=== PATIENT | male | born 1975 | race Caucasian/White ===

== ENCOUNTER 2016-11-19 15:32 | Emergency (ER) | payer OTHER ==
[~2016-11-19] VITALS: Ht 190.5 cm; Wt 127.7 kg
[~2016-11-19 15:32] MED LIST: BENTYL10 MG PO; CEFDINIR300 MG PO; FIORICET WI1 CAPSULE PO; LORAZEPAM0.5 MG PO; NAPROSYN500 MG PO; OMEPRAZOLE20 MG PO; RANITIDINE HCL150 MG PO; ZOLPIDEM TARTRA10 MG PO
[2016-11-19 15:54] LABS: HEMATOCRIT 50.1 % (38.0-50.0); MCH 32.1 PG (29.0-34.0); MCHC 34.1 G/DL (30.0-36.0); MEAN PLAT.VOLUME 9.7 uM^3 (9.0-12.4); PLATELET COUNT 235 K/uL (156-360); RBC DIS.WIDTH-CV 13.5 % (11.8-14.6); RBC DIS.WIDTH-SD 46.1 % (39-53); RED BLOOD COUNT 5.33 M/uL (4.00-5.50); WHITE BLOOD COUNT 7.9 K/uL (4.1-10.2)
[2016-11-19 16:05] LABS: CHLORIDE 104 mEq/L (99-109); POTASSIUM 4.6 mEq/L (3.7-5.4); SODIUM 143 mEq/L (136-147)
[2016-11-19 16:07] LABS: GLUCOSE 103 mg/dL (70-99)
[2016-11-19 16:08] LABS: ANION GAP 12 MEQ/L (2-14)
[2016-11-19 16:11] LABS: GFR ESTIMATE (CALCULATED) > 59 mL/min/
[2016-11-19 16:12] LABS: UREA NITROGEN (BUN) 9 mg/dL (9-23)
[2016-11-19 16:17] LABS: TROP-I INTERPRETATION NEGATIVE; TROPONIN-I < 0.01 ng/mL (0.0-0.30)
[2016-11-19 19:54] VITALS: BP 128/76
== END 2016-11-19 19:52 | disposition home or self-care (01) ==
LOC: EME 15:32
DX: R00.2 Palpitations (principal)
CPT/HCPCS: 71020; 80048; 84484; 85027; 93005; 99281; 99284

== ENCOUNTER 2017-10-06 04:43 | Emergency (ER) | payer OTHER ==
[~2017-10-06] VITALS: Ht 190.5 cm; Wt 138.9 kg
[2017-10-06 05:56] LABS: HEMATOCRIT 45.1 % (38.0-50.0); MCH 33.3 PG (29.0-34.0); MCHC 35.5 G/DL (30.0-36.0); PLATELET COUNT 175 K/uL (156-360); RBC DIS.WIDTH-CV 13.3 % (11.8-14.6); RBC DIS.WIDTH-SD 46.3 % (39-53); WHITE BLOOD COUNT 10.8 K/uL (4.1-10.2)
[2017-10-06 06:06] LABS: ALBUMIN 4.3 g/dL (3.2-4.8); CHLORIDE 102 mEq/L (99-109); POTASSIUM 4.4 mEq/L (3.7-5.4); SODIUM 138 mEq/L (136-147)
[2017-10-06 06:08] LABS: GLUCOSE 262 mg/dL (70-99); TOTAL PROTEIN 7.2 g/dL (6.4-8.3)
[2017-10-06 06:11] LABS: APPEARANCE CLEAR ((CLEAR)); BILIRUBIN NEGATIVE; BLOOD NEGATIVE; COLOR YELLOW ((YELLOW)); GLUCOSE (STRIP) 50; KETONES 20; LEUKOCYTES NEGATIVE; NITRITE NEGATIVE; PROTEIN (STRIP) 30; SPECIFIC GRAVITY 1.016 (1.000-1.030); UCUL ADDED? NO; UROBILINOGEN 0.2 MG/DL (0.2-1.0)
[2017-10-06 06:12] LABS: ALKALINE PHOSPHATASE 79 IU/L (3-129); CREATININE 0.7 mg/dL (0.6-1.3); GFR ESTIMATE (CALCULATED) > 59 mL/min/ (58.99-99999); PHOSPHORUS 2.8 mg/dL (2.5-4.9)
[2017-10-06 06:13] LABS: UREA NITROGEN (BUN) 12 mg/dL (9-23)
[2017-10-06 06:14] LABS: AST (GOT) 42 IU/L (2-34)
[2017-10-06 06:15] LABS: ALT (GPT) 74 IU/L (3-49); LIPASE 21 U/L (1.0-51.0)
[2017-10-06 06:17] LABS: TROP-I INTERPRETATION NEGATIVE; TROPONIN-I 0.02 ng/mL (0.0-0.30)
[2017-10-06 06:29] LABS: AMPHETAMINE NEGATIVE (500 ng/mL); BARBITURATES NEGATIVE (200 ng/mL); BENZODIAZEPINES PRESUMPTIVE POSITIVE (150 ng/mL); BUPRENORPHINE NEGATIVE (10 ng/mL); COCAINE NEGATIVE (150 ng/mL); METHADONE NEGATIVE (200 ng/mL); METHAMPHETAMINE NEGATIVE (500 ng/mL); OPIATES (MORPHINE) NEGATIVE (100 ng/mL); OXYCODONE NEGATIVE (100 ng/mL); PHENCYCLIDINE NEGATIVE (25 ng/mL); PROPOXYPHENE NEGATIVE (300 ng/mL); THC CANNABINOIDS PRESUMPTIVE POSITIVE (50 ng/mL); TRICYCLIC ANTIDEPRESSANTS NEGATIVE (300 ng/mL)
[2017-10-06 07:17] LABS: BENZODIAZEPINES, URINE SCREEN Negative (200 ng/mL)
[2017-10-06 07:48] LABS: ACETAMINOPHEN (TYLENOL) < 10 MCG/ML (10-30); SALICYLATE < 3.0 MG/DL (15-30)
[2017-10-06 10:41] VITALS: BP 121/88
== END 2017-10-06 10:50 | disposition home or self-care (01) ==
LOC: EME → EDBD 04:43 → EME 04:43
PROVIDERS: Emergency Medicine
DX: R00.0 Tachycardia, unspecified (principal); T40.7X5A Adverse effect of cannabis (derivatives), initial encounter; R73.9 Hyperglycemia, unspecified; I10 Essential (primary) hypertension; K21.9 Gastro-esophageal reflux disease without esophagitis; G12.9 Spinal muscular atrophy, unspecified; Z99.3 Dependence on wheelchair
CPT/HCPCS: 71045; 80053; 81003; 82948; 83690; 83735; 84100; 84484; 84999; 85027; 93005; 99281; 99285; G0480; J2060; J7030

== ENCOUNTER 2017-11-03 23:24 | Emergency (ER) | payer OTHER ==
[~2017-11-03] VITALS: Ht 188 cm; Wt 136.3 kg
[2017-11-04 00:01] LABS: HEMATOCRIT 45.5 % (38.0-50.0); HEMOGLOBIN 16.3 G/DL (12.5-16.6); MCH 33.6 PG (29.0-34.0); MCHC 35.8 G/DL (30.0-36.0); MCV 93.8 FL (86-99); PLATELET COUNT 210 K/uL (156-360); RBC DIS.WIDTH-CV 13.2 % (11.8-14.6); RBC DIS.WIDTH-SD 46.1 % (39-53); RED BLOOD COUNT 4.85 M/uL (4.00-5.50); WHITE BLOOD COUNT 6.4 K/uL (4.1-10.2)
[2017-11-04 00:12] LABS: CHLORIDE 100 mEq/L (99-109); POTASSIUM 4.4 mEq/L (3.7-5.4); SODIUM 137 mEq/L (136-147)
[2017-11-04 00:14] LABS: GLUCOSE 294 mg/dL (70-99)
[2017-11-04 00:18] LABS: CREATININE 0.8 mg/dL (0.6-1.3); GFR ESTIMATE (CALCULATED) > 59 mL/min/ (58.99-99999)
[2017-11-04 00:19] LABS: UREA NITROGEN (BUN) 11 mg/dL (9-23)
[2017-11-04 00:28] LABS: TROP-I INTERPRETATION NEGATIVE; TROPONIN-I < 0.01 ng/mL (0.0-0.30)
[2017-11-04 02:22] LABS: TROP-I INTERPRETATION NEGATIVE; TROPONIN-I < 0.01 ng/mL (0.0-0.30)
[2017-11-04 05:01] VITALS: BP 134/87
== END 2017-11-04 05:43 | disposition home or self-care (01) ==
LOC: EME 23:24
PROVIDERS: Emergency Medicine
DX: R00.2 Palpitations (principal); F41.1 Generalized anxiety disorder; T40.7X5A Adverse effect of cannabis (derivatives), initial encounter; I49.8 Other specified cardiac arrhythmias; K21.9 Gastro-esophageal reflux disease without esophagitis; G47.00 Insomnia, unspecified; Z99.3 Dependence on wheelchair; Z87.39 Personal history of other diseases of the musculoskeletal system and connective tissue; Z88.1 Allergy status to other antibiotic agents
CPT/HCPCS: 71046; 80048; 84484; 85027; 93005; 99281; 99284